=== PATIENT | male | born 1990 | race Caucasian/White ===

== ENCOUNTER 2019-11-07 20:53 | Emergency (ER) | payer OTHER ==
[~2019-11-07] VITALS: Ht 167.6 cm; Wt 73.0 kg
--- NOTE | 2019-11-07 21:06 | NUR ---
[employer] TREASURER: EKG DONE IN TRIAGE.
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
--- NOTE | 2019-11-07 21:25 | NUR ---
TO RADIOLOGY PER KAREN.
[2019-11-07] MEDS ORDERED: ONDANSETRON 2MG/ML, 2ML IVPush ONE (21:30)
[2019-11-07] MEDS ORDERED: LIDOCAINE-MPF 1%, 5ML INFIL ONE (21:30)
[2019-11-07] MEDS ORDERED: MORPHINE SULFATE 4 MG/ML, 1ML IVPush PRN (21:30)
[2019-11-07] MEDS ORDERED: SODIUM CHLORIDE FLUSH 10ML SYR IVF ONE (21:30)
[2019-11-07] MEDS ORDERED: NEOSPORIN OINT. PKT 1 PACKET ONE (21:39)
[2019-11-07] MEDS ORDERED: ONDANSETRON 2MG/ML, 2ML ONE (21:46)
[2019-11-07] MEDS ORDERED: LIDOCAINE-MPF 1%, 5ML ONE (21:46)
[2019-11-07] MEDS ORDERED: MORPHINE SULFATE 4 MG/ML, 1ML ONE (21:47)
--- NOTE | 2019-11-07 22:14 | NUR ---
PT REPORT TO HOLLY RILEY. PT CARE TRANSFERRED. UNOPENED ZOFRAN AND MORPHINE VIALS GIVEN TO OSVALDO FOR ADMINISTRATION. LIDOCAINE WAS GIVEN TO DR HUBBARD EARLIER, FOR ADMINISTRATION.
--- NOTE | 2019-11-07 22:14 | NUR ---
REPORT FROM HOLLY GROSSMAN.
[2019-11-07 22:30] VITALS: BP 116/64
[2019-11-07] MEDS ORDERED: ONDANSETRON ODT 4 MG ONE (22:41)
[2019-11-07] MEDS ORDERED: IBUPROFEN 200 MG TABLET ONE (22:41)
[2019-11-07] MEDS ORDERED: L.E.T SOLUTION TP ONE ×2 (22:41→23:00)
[2019-11-07] MEDS ORDERED: HYDROcodone/APAP 5/325 TABLET ONE (22:52)
[2019-11-07] MEDS ORDERED: ONDANSETRON ODT 4 MG PO ONE (23:00)
[2019-11-07] MEDS ORDERED: IBUPROFEN 600 MG TABLET PO ONE (23:00)
[2019-11-07] MEDS ORDERED: ONDANSETRON 4 MG TABLET PO ONE (23:00)
[2019-11-07] MEDS ORDERED: HYDROcodone/APAP 5/325 TABLET PO PRN (23:00)
== END 2019-11-07 23:41 | disposition home or self-care (01) ==
LOC: ED 22:55
DX: S01.81XA Laceration without foreign body of other part of head, initial encounter (principal); S50.311A Abrasion of right elbow, initial encounter; S50.812A Abrasion of left forearm, initial encounter; S80.812A Abrasion, left lower leg, initial encounter; R41.82 Altered mental status, unspecified; R41.3 Other amnesia; G89.11 Acute pain due to trauma; M54.2 Cervicalgia; R94.31 Abnormal electrocardiogram [ECG] [EKG]; W19.XXXA Unspecified fall, initial encounter; Y93.89 Activity, other specified; Y92.482 Bike path as the place of occurrence of the external cause; Y99.8 Other external cause status
CPT/HCPCS: 12051; 70450; 70486; 72125; 73080; 73090; 93005; 99285; Q0162